=== PATIENT | female | born 1965 | race Caucasian/White ===

== ENCOUNTER 2018-08-09 18:18 | Emergency (ER) | END 2018-08-09 20:20 | disposition home or self-care (01) ==

== ENCOUNTER 2018-10-19 07:42 | Emergency (ER) | payer MEDICAID ==
[~2018-10-19] VITALS: Ht 162.6 cm; Wt 100.2 kg
[~2018-10-19 07:42] MED LIST: CYCL10TA7 PO; NAPR-985 PO
[2018-10-19 07:45] VITALS: Ht 162.6 cm; Wt 100.2 kg
--- NOTE | 2018-10-19 08:02 | ERD ---
ER Documentation Chief Complaint Chief Complaint pt bib self with c/o numbness all over but since this am to bilat legs HPI 53-year-old female history of diabetes mellitus type 2 and thyroid disease presents to the ED complaining of a 4-month history of intermittent, worsening episodes of buttock pain which radiate down the back of her legs. Initially started on the left but now is bilateral. Also complaining of numbness and tingling to both her legs and feet. Denies any urinary or fecal changes. Denies neck or back pain. No abdominal pain, nausea, vomiting, diarrhea or constipation. No skin rash. No history of trauma or injury. Denies anorexia, night sweats, fevers or chills. Seen in the ED for similar symptoms August 2018 and reports alleviation of symptoms with the prescribed medications. ROS All systems reviewed and are negative except as per history of present illness. Medications Home Meds Active Scripts Nitrofurantoin Monohyd Macrocr* (Macrobid*) 100 Mg Capsr, 100 MG PO HS for 7 Days, CAP Prov:ROSARIO LONG MD 10/19/18 Cyclobenzaprine Hcl* (Cyclobenzaprine Hcl*) 10 Mg Tablet, 10 MG PO TID PRN for PAIN LEVEL 7-10, #15 TAB Prov:ROSARIO LONG MD 10/19/18 Naproxen* (Naprosyn*) 500 Mg Tablet, 500 MG PO BID PRN for PAIN AND/OR INFLAMMATION, #14 TAB Prov:ROSARIO LONG MD 10/19/18 Cyclobenzaprine Hcl* (Cyclobenzaprine Hcl*) 10 Mg Tablet, 10 MG PO TID, #15 TAB Prov:MAYLIN SOUZA PA-C 08/09/18 Naproxen* (Naprosyn*) 500 Mg Tablet, 500 MG PO BID PRN for PAIN AND/OR INFLAMMATION, #30 TAB Prov:MAYLIN SOUZA PA-C 08/09/18 Allergies Allergies: Coded Allergies: No Known Allergy (Unverified , 08/09/18) PMhx/Soc Reviewed in chart. As per HPI. History of Surgery: Yes () Anesthesia Reaction: No Hx Neurological Disorder: No Hx Respiratory Disorders: No Hx Cardiac Disorders: No Hx Psychiatric Problems: No Hx Miscellaneous Medical Probl: Yes (DM II, thyroid disease) Hx Alcohol Use: No Hx Substance Use: No Hx Tobacco Use: No FmHx No stroke or cancer Physical Exam Vitals Vital Signs Date Temp Pulse Resp B/P (MAP) Pulse Ox O2 O2 Flow FiO2 Time Delivery Rate 10/19/18 98.0 74 18 122/85 97 Room Air 11:21 (97) 10/19/18 97.3 85 16 123/74 98 07:45 (90) Physical Exam Const: No acute distress Head: Atraumatic Eyes: Normal Conjunctiva ENT: Normal External Ears, Nose and Mouth. Neck: Full range of motion. No meningismus. Resp: Clear to auscultation bilaterally Cardio: Regular rate and rhythm, no murmurs Abd: Soft, non tender, non distended. Normal bowel sounds Skin: No petechiae or rashes Back: No midline or flank tenderness Ext: No cyanosis, or edema Neur: Awake and alert Psych: Normal Mood and Affect Results 24 hrs Laboratory Tests Test 10/19/18 08:35 10/19/18 08:52 10/19/18 08:53 Bedside Glucose 99 mg/dL Bedside Urine pH (LAB) 6.0 Bedside Urine Protein (LAB) Negative Bedside Urine Glucose (UA) Negative Bedside Urine Ketones (LAB) Negative Bedside Urine Blood Trace-intact Bedside Urine Nitrite (LAB) Negative Bedside Urine Leukocyte Esterase 2+ (L Urine Color YELLOW Urine Clarity CLEAR Urine pH 6.0 Urine Specific [place] 1.015 Urine Ketones NEGATIVE mg/dL Urine Nitrite NEGATIVE mg/dL Urine Bilirubin NEGATIVE mg/dL Urine Urobilinogen NEGATIVE mg/dL Urine Leukocyte Esterase 2+ Annalisa/ul Urine Microscopic RBC 3 /HPF Urine Microscopic WBC 17 /HPF Urine Bacteria FEW /HPF Urine Hemoglobin 1+ mg/dL Urine Glucose NEGATIVE mg/dL Urine Total Protein NEGATIVE mg/dl Current Medications Medications Dose Sig/Jose C Start Time Status Last (Trade) Ordered Route PRN Stop Time Admin Dose Reason Admin Ketorolac 15 mg ONCE STAT 10/19/18 DC 10/19/18 Tromethamine IM 08:38 09:48 (Toradol) 10/19/18 08:40 Procedures/MDM DOCUMENTS REVIEWED: ED nurse prior records Medical Decision Makin-year-old female history of diabetes mellitus type 2 and thyroid disease presents to the ED complaining of a 4-month history of intermittent, worsening episodes of buttock pain which radiate down the back of her legs. Differential Diagnosis includes but is not limited to spinal strain, disc herniation, sciatica, spinal stenosis, pyelonephritis, chronic back pain, contusion, DJD, vertebral fracture, shingles, renal stone, compression fracture, pancreatitis, discitis, epidural abscess, osteomyelitis, osteoporosis, ankylos ing spondylitis, drug seeking behavior, neoplasm, metastatic cancer, pneumonia, TB, Cauda Equina and AAA. The patient's clinical presentation is most consistent with a musculoskeletal cause. There is neither evidence of any acute neurologic damage, nor loss of function and thus, advanced imaging studies have been deferred. Dip urinalysis positive for leukocyte esterase consistent with urinary tract infection although UA is pending. No CVA tenderness, flank pain or signs of pyelonephritis. Patient will be treated conservatively with appropriate pain control and precautionary discharge instructions provided. Counseled [patient and family] regarding diagnostic workup, diagnosis and need for followup. Understands to return to ED if symptoms recur, worsen or any other concerns. Departure Diagnosis: Primary Impression: Paresthesias/numbness Additional Impressions: Sciatica Laterality: bilateral Qualified Codes: M54.31 - Sciatica, right side; M54.32 - Sciatica, left side Diabetic neuropathy Diabetes mellitus type: type 2 Diabetes mellitus complication detail: with other neurological complication Qualified Codes: E11.49 - Type 2 diabetes mellitus with other diabetic neurological complication Diabetes mellitus type 2 in obese UTI (urinary tract infection) Urinary tract infection type: site unspecified Hematuria presence: without hematuria Qualified Codes: N39.0 - Urinary tract infection, site not specified Condition: ROSARIO Shankar MD Oct 19, 2018 08:02
[2018-10-19] MEDS ORDERED: KETOROLAC 15 MG INJ IM STA (08:38)
[2018-10-19] MEDS ORDERED: NAPR-985 PO (10:04)
[2018-10-19] MEDS ORDERED: CYCL10TA7 PO (10:04)
[2018-10-19] MEDS ORDERED: NITR-58 PO (10:07)
[2018-10-19 11:21] VITALS: BP 122/85; PULSE 74; RESP 18
== END 2018-10-19 11:22 | disposition home or self-care (01) ==
LOC: E/R 07:42
DX: R20.2 Paresthesia of skin (principal); M54.32 Sciatica, left side; M54.31 Sciatica, right side; E11.49 Type 2 diabetes mellitus with other diabetic neurological complication; N39.0 Urinary tract infection, site not specified; E66.9 Obesity, unspecified; Z68.37 Body mass index [BMI] 37.0-37.9, adult
CPT/HCPCS: 81001; 81003; 82962; 96372; J1885; Z7502